=== PATIENT | female | born 1980 | race Caucasian/White ===

== ENCOUNTER 2017-03-30 16:55 | Observation (INO) | payer OTHER ==
[~2017-03-30] VITALS: Ht 158 cm; Wt 72.6 kg
[2017-03-30 17:15] VITALS: BP 101/64
[2017-03-30] MEDS ORDERED: PREN1TAB89 PO (17:19)
[2017-03-30] MEDS: RINGERS SOLUTION,LACTATED 1,000 ML IV SCH (21:43)
[2017-03-31] MEDS: RINGERS SOLUTION,LACTATED 1,000 ML IV SCH (04:27)
== END 2017-03-31 10:40 | disposition home or self-care (01) ==
LOC: 4S 16:55
PROVIDERS: ADMIT Obstetrics & Gynecology; ATTEND Obstetrics & Gynecology
DX: O62.9 Abnormality of forces of labor, unspecified (principal); Z3A.39 39 weeks gestation of pregnancy
CPT/HCPCS: 36415; 59025; 76805 ×2; 89060; 96360; 96361 ×2; G0378 ×2; J7120 ×2

== ENCOUNTER 2017-04-21 14:45 | Inpatient (IN) | payer OTHER ==
[~2017-04-21] VITALS: Ht 156 cm; Wt 70.0 kg
[~2017-04-21 14:45] MED LIST: PREN1TAB89 PO
[2017-04-21] MEDS ORDERED: RINGERS SOLUTION,LACTATED 1,000 ML IV PRN (17:16)
[2017-04-21] MEDS ORDERED: LIDOCAINE HCL/PF 1% 30 ML VIAL INJ PRN (17:30)
[2017-04-21] MEDS ORDERED: MISOPROSTOL 25 MCG TABLET VG ONE (17:30)
[2017-04-21] MEDS ORDERED: CITRIC ACID/SODIUM CITRATE 30 ML SOLUTION UDCUP PO PRN (17:30)
[2017-04-21] MEDS ORDERED: METHYLERGONOVINE MALEATE 0.2 MG/ML VIAL IM PRN (17:30)
[2017-04-21] MEDS ORDERED: METOCLOPRAMIDE HCL 5 MG/ML 2 ML VIAL IVP PRN (17:30)
[2017-04-21 17:40] VITALS: BP 134/79
[2017-04-21 18:16] LABS: BASOPHILS % (AUTO) 0.3 % (0.0-2.0); EOSINOPHILS % (AUTO) 0.4 % (1.0-6.0); HEMATOCRIT 40.1 % (36-46); HEMOGLOBIN 13.6 g/dL (12.0-16.0); LYMPHOCYTES # (AUTO) 2.6 K/uL (1.0-4.8); LYMPHOCYTES % (AUTO) 22.1 % (22.0-44.0); MEAN CORPUSCULAR HEMOGLOBIN 28.9 pg (26.0-34.0); MEAN CORPUSCULAR VOLUME 85 fL (80-100); MONOCYTES # (AUTO) 0.7 K/uL (0.1-1.0); NEUTROPHILS # (AUTO) 8.3 K/uL (1.8-7.7); NEUTROPHILS % (AUTO) 71.2 % (40.0-70.0); PLATELET COUNT (AUTO)-OB 218 K/uL (150-450); RED BLOOD CELL COUNT(AUTO) 4.72 MIL/uL (4.00-5.20)
[2017-04-21 18:30] LABS: INR 0.9 (0.9-1.1)
[2017-04-21] MEDS ORDERED: LORazepam 1 MG TABLET PO ONE (19:15)
[2017-04-21 20:05] LABS: RUBELLA SCREEN (IGG) IMMUNE (IMMUNE)
[2017-04-21] MEDS ORDERED: MISOPROSTOL 100 MCG TABLET VG ONE (20:30)
[2017-04-21] MEDS: FentaNYL CITRATE-PF 100 MCG/2 ML VIAL IVP PRN ×4 (22:06→23:49)
[2017-04-21] MEDS: OXYGEN THERAPY IH SCH ×2 (22:11→22:51)
[2017-04-21] MEDS ORDERED: TERBUTALINE SULFATE 1 MG/ML VIAL SQ ONE (22:45)
[2017-04-21] MEDS ORDERED: BUPIVACAINE HCL/PF 0.25% 30 ML VIAL ONE (22:57)
[2017-04-21] MEDS ORDERED: FentaNYL/BUPIV 0.125%/NS/PF 200 ML ED ONE (22:58)
[2017-04-21] MEDS ORDERED: MISOPROSTOL 100 MCG TABLET VG SCH (23:00)
[2017-04-21] MEDS: RINGERS SOLUTION,LACTATED 1,000 ML IV SCH (23:04)
[2017-04-21] MEDS ORDERED: FentaNYL/BUPIV 0.125%/NS/PF 200 ML ED PRN (23:46)
[2017-04-22] MEDS ORDERED: DiphenhydrAMINE HCL 50 MG/ML VIAL IVP PRN
[2017-04-22] MEDS: RINGERS SOLUTION,LACTATED 1,000 ML IV SCH ×2 (01:05→10:38)
[2017-04-22] MEDS: ONDANSETRON HCL 4 MG/2 ML VIAL IVP PRN ×2 (05:40→09:19)
[2017-04-22] MEDS ORDERED: OXYTOCIN 30 UNITS/LACT RINGERS 500 ML IV ONE (08:14)
[2017-04-22] MEDS ORDERED: GLYCERIN/WITCH HAZEL LEAF 40 PADS JAR TP PRN (21:30)
[2017-04-22] MEDS ORDERED: MAGNESIUM HYDROXIDE SUSPENSION 30 ML UDCUP PO PRN (21:30)
[2017-04-22] MEDS ORDERED: ZOLPIDEM TARTRATE 5 MG TABLET PO PRN (21:30)
[2017-04-22] MEDS ORDERED: LANOLIN 7 GM OINTMENT TP PRN (21:30)
[2017-04-22] MEDS ORDERED: OxyCODONE HCL/ACETAMINOPHEN 5-325 MG TABLET PO PRN ×2 (21:30)
[2017-04-22] MEDS ORDERED: BENZOCAINE 20%/MENTHOL 56 GM SPRAY CANISTER TP PRN (21:30)
[2017-04-23] MEDS: IBUPROFEN 800 MG TABLET PO PRN ×2 (00:21→06:41)
[2017-04-23] MEDS: HYDROCORTISONE 2.5% 30 GM CREAM TP PRN ×2 (03:55→06:39)
[2017-04-23 06:01] LABS: BASOPHILS % (AUTO) 0.4 % (0.0-2.0); HEMATOCRIT 36.6 % (36-46); HEMOGLOBIN 12.4 g/dL (12.0-16.0); LYMPHOCYTES # (AUTO) 3.7 K/uL (1.0-4.8); LYMPHOCYTES % (AUTO) 26.2 % (22.0-44.0); MEAN CORPUSCULAR HGB CONC 33.8 G/dL (31.0-37.0); MEAN CORPUSCULAR VOLUME 86 fL (80-100); MONOCYTES # (AUTO) 0.9 K/uL (0.1-1.0); MONOCYTES % (AUTO) 6.6 % (2.0-9.0); NEUTROPHILS # (AUTO) 9.2 K/uL (1.8-7.7); NEUTROPHILS % (AUTO) 65.8 % (40.0-70.0); PLATELET COUNT (AUTO)-OB 176 K/uL (150-450); RED BLOOD CELL COUNT(AUTO) 4.27 MIL/uL (4.00-5.20); RED CELL DISTRIBUTION WIDTH 14.2 % (11.5-14.5)
[2017-04-23] MEDS ORDERED: LORazepam 1 MG TABLET PO ONE (10:15)
[2017-04-23] MEDS ORDERED: ZOLP5 PO (12:41)
[2017-04-23] MEDS ORDERED: IBUP-2071 PO (12:42)
[2017-04-23] MEDS ORDERED: HC A30CR13 TP (12:44)
== END 2017-04-23 13:05 | disposition home or self-care (01) | DRG 775 ==
LOC: 4S 14:45 → OBSVTOIN 14:45 → 4S 04-22 21:00
PROVIDERS: ADMIT Obstetrics & Gynecology; ATTEND Obstetrics & Gynecology
PROC: 10E0XZZ Delivery of Products of Conception, External Approach (ICD-10-PCS; principal; 2017-04-22)
PROC: 3E0R3BZ Introduction of Anesthetic Agent into Spinal Canal, Percutaneous Approach (ICD-10-PCS; 2017-04-22)
PROC: 00HU33Z Insertion of Infusion Device into Spinal Canal, Percutaneous Approach (ICD-10-PCS; 2017-04-22)
DX: O48.0 Post-term pregnancy (principal); O41.03X0 Oligohydramnios, third trimester, not applicable or unspecified; O77.0 Labor and delivery complicated by meconium in amniotic fluid; O09.523 Supervision of elderly multigravida, third trimester; Z3A.42 42 weeks gestation of pregnancy; Z37.1 Single stillbirth
CPT/HCPCS: 76805; 85384; 86592; 86762; 86850; 86900; 86901; 87070; 87205; 87340; J2405; J2590; J3010; J3105; J3490; J7120